=== PATIENT | female | born 1990 | race Caucasian/White ===

== ENCOUNTER 2021-11-04 22:33 | Emergency (ER) | payer MEDICAID ==
[~2021-11-04] VITALS: Ht 175.3 cm; Wt 108.9 kg
[2021-11-04 22:33] VITALS: BP 126/66
== END 2021-11-05 03:32 | disposition left against medical advice (07) ==
LOC: ER 22:33
DX: R51.9 Headache, unspecified (principal); Z53.21 Procedure and treatment not carried out due to patient leaving prior to being seen by health care provider

== ENCOUNTER 2021-12-22 01:43 | Emergency (ER) | payer MEDICAID ==
[~2021-12-22] VITALS: Ht 175.3 cm; Wt 90.9 kg
[2021-12-22 02:16] VITALS: BP 110/62
== END 2021-12-22 05:27 | disposition left against medical advice (07) ==
LOC: ER 01:43
DX: R42 Dizziness and giddiness (principal); R06.02 Shortness of breath; R00.2 Palpitations; Z53.21 Procedure and treatment not carried out due to patient leaving prior to being seen by health care provider